=== PATIENT | female | born 1950 | race Caucasian/White ===

== ENCOUNTER 2022-02-10 21:30 | Inpatient (IN) ==
[2022-02-10] MEDS ORDERED: ONDANSETRON 4 MG/2 ML VIAL IV ONE (21:57)
[2022-02-10] MEDS ORDERED: PANTOPRAZOLE 40 MG VIAL IV ONE (21:57)
[2022-02-10] MEDS ORDERED: LACTATED RINGERS 1,000 ML IV ONE (21:57)
[2022-02-10 22:23] LABS: Basophils # (Auto) 0.04 K/mcL (0.00-0.30); Basophils % (Auto) 0.5 % (0.0-2.0); Eosinophils # (Auto) 0.06 K/mcL (0.00-0.70); Eosinophils % (Auto) 0.7 % (0.0-7.0); Hemoglobin 12.4 g/dL (11.2-15.7); Lymphocytes # (Auto) 0.77 K/mcL (1.50-4.80); Mean Cell Volume 83.1 fL (80.0-100.0); Mean Corpuscular HGB Conc 35.4 g/dL (31.0-36.0); Mean Platelet Volume 12.4 fL (7.4-10.4); Monocytes # (Auto) 0.45 K/mcL (0.10-0.90); Monocytes % (Auto) 5.3 % (1.0-12.0); Neutrophils % (Auto) 84.5 % (38.0-78.0); Platelet Count 216 K/mcL (140-440); RBC 4.21 M/mcL (3.59-5.38); Red Cell Distribution Width 11.9 % (11.5-14.5); WBC 8.5 K/mcL (4.5-11.0)
[2022-02-10 22:53] LABS: ALT/SGPT 23 U/L (<40); AST/SGOT 35 U/L (<32); Albumin 4.6 gm/dL (3.2-5.2); Albumin/Globulin Ratio 1.6 (1.0-2.3); Alkaline Phosphatase 84 U/L (39-117); Bilirubin,Total 0.8 mg/dL (0.1-1.0); Blood Urea Nitrogen 14 mg/dL (8-23); Calcium 9.4 mg/dL (8.6-10.4); Carbon Dioxide 21 mmol/L (22-30); Chloride 80 mmol/L (96-108); Globulin 2.9 gm/dL (2.2-3.7); Glomerular Filtration Rate 92; Glucose 250 mg/dL (70-105)
[2022-02-11 00:05] LABS: Beta Hydroxybutyrate 1.19 mmol/L (<0.27)
--- NOTE | 2022-02-11 00:09 | Emergency Department Note ---
HPI General Chief complaint: Chest Pain Stated complaint: CHEST PAIN Time Seen by Provider: 02/10/22 21:38 Source: patient Mode of arrival: ambulatory Limitations: no limitations History of Present Illness HPI Narrative: Narrative: 72-year-old female type I diabetic on insulin pump, history of GERD, hyperlipidemia, hypothyroid, mild hyponatremia presenting to the ED mostly for a flareup of her GERD she says. She says today after she took one of her medications "for her bones" (which sounds like it was alendronate) she developed her typical burning mid back pain and had some nonbloody nausea vomiting. She says this is exactly like her normal GERD except it was more severe which is why she came in. She she says she does not have abdominal pain nor does she have chest pain. She says this is very typical for her GERD. Also says she has been feeling a bit foggy or slightly dizzy but attributes it to her chronic vertigo. She has no focal neurologic complaint no fever no chills no genitourinary symptoms. She says she generally maintains her diabetes quite well with her insulin pump and states she is never really had DKA before. Only recent medication changes a few months ago she was started on desmopressin for frequent urination which seems to have helped she says. No other complaints. Related Data Home Medications Medication Instructions Recorded Confirmed Humalin Insulin Pump 07/11/16 03/21/21 Liothyronine Sodium 25 mcg .ROUTE 07/11/16 03/21/21 aspirin 81 mg tablet,delayed 81 mg PO DAILY 07/11/16 03/21/21 release (Lo-Dose Aspirin) pravastatin 40 mg tablet 40 mg PO HS 07/11/16 03/21/21 hydrochlorothiazide 12.5 mg capsule 12.5 mg PO DAILY 06/17/20 03/21/21 losartan 50 mg tablet 50 mg PO BID 06/17/20 03/21/21 albuterol sulfate 90 mcg/actuation 1 inh INHALATION ONCE 12/22/20 03/21/21 aerosol inhaler (Ventolin HFA) alendronate 70 mg tablet (Fosamax) 70 mg PO QWEEK 12/22/20 03/21/21 amlodipine 10 mg tablet 10 mg PO QDAY 12/22/20 03/21/21 beclomethasone dipropionate 40 1 inh INHALATION BID 12/22/20 03/21/21 mcg/actuation HFA breath activated aerosol (Qvar RediHaler) calcium carbonate 600 mg calcium 600 mg PO QDAY 12/22/20 03/21/21 (1,500 mg) tablet cholecalciferol (vitamin D3) 125 125 mcg PO QDAY 12/22/20 03/21/21 mcg (5,000 unit) capsule epinephrine 1 mg/mL injection kit 1 mg IM Q20M PRN 12/22/20 03/21/21 glucagon HCl 1 mg solution for 1 mg SUB-Q Q20M PRN 12/22/20 03/21/21 injection (Glucagon (HCl) Emergency Kit) insulin lispro 100 unit/mL 5 unit SUB-Q TID 12/22/20 03/21/21 subcutaneous solution (Humalog U-100 Insulin) meclizine 25 mg tablet 25 mg PO QDAY 12/22/20 03/21/21 omeprazole 20 mg capsule,delayed 20 mg PO QDAY 12/22/20 03/21/21 release vitamin E 200 unit capsule 400 unit PO QDAY cap 01/04/21 03/21/21 Previous Rx's Medication Instructions Recorded lorazepam 1 mg tablet (Ativan) 1 mg PO ONCE PRN #2 tab 01/09/21 Allergies Allergy/AdvReac Type Severity Reaction Status Date / Time oxycodone [Oxycodone] AdvReac Intermediate hallucinati Verified 03/21/21 09:29 ons hydrocodone AdvReac Mild Nausea Verified 03/21/21 09:29 Erythromycin Base AdvReac Unknown Gastrointestinal Verified 03/21/21 09:29 Upset Sulfa (Sulfonamide AdvReac Unknown VOMITING Verified 03/21/21 09:29 Antibiotics) [SULFA (SULFONAMIDE ANTIBIOTICS)] NUTS Allergy Unknown HIVES Uncoded 04/13/15 18:13 Review of Systems ROS ROS Narrative: Narrative: All systems ED: reviewed and negative except as stated. [facility] Narrative Patient History Narrative: Narrative: Medical/Surgical/Family History All Active Problems Acute hyponatremia (Acute) History of type 1 diabetes mellitus (Acute) Diabetic peripheral neuropathy associated with type 1 diabetes mellitus (Chronic) Low back pain (Chronic) Hyperlipidemia (Acute) Hypothyroidism (Acute) Osteoarthritis (Acute) Osteopenia (Chronic) Leg fracture, left (Chronic) History of foot surgery (Chronic ~06/2014) Diabetic Charcot's foot (Chronic) Ligament tear (Chronic) Easy bruising (Chronic) Painful joint (Chronic) Swollen joint (Chronic) Arthritis (Chronic) Increased urinary frequency (Chronic) Hiatal hernia (Chronic) Heartburn (Chronic) Heart palpitations (Chronic) Vertigo (Chronic) Diabetes type I (Chronic) Thyroid disorder (Chronic) Weight gain (Chronic) History of appendectomy (Chronic) History of shoulder surgery (Chronic) Bronchitis (Chronic) Asthma (Chronic) Closed fracture of left tibial plateau (Chronic) Osteoporosis (Chronic) Accidental drug ingestion (Chronic) Bite by animal (Chronic) Laceration (Chronic) Dog bite (Chronic) Medical History Accidental drug ingestion Arthritis Asthma Bronchitis Diabetes type I Diabetic Charcot's foot Diabetic peripheral neuropathy associated with type 1 diabetes mellitus Easy bruising Foot fracture, left Heart palpitations Heartburn Hiatal hernia Hyperlipidemia Hypothyroidism Increased urinary frequency Left femoral shaft fracture (~07/2019) Leg fracture, left Ligament tear Low back pain Osteoarthritis Osteopenia Osteoporosis Painful joint Swollen joint Thyroid disorder Vertigo Weight gain Surgical History History of appendectomy History of foot surgery (~06/2014) Left Mid foot reconstruction History of open reduction and internal fixation (ORIF) procedure left tibial plateau fracture History of shoulder surgery Right History of surgery left femur intramedullary kayode Family History Mother , 100 Arthritis Father , 72 Heart disease High blood pressure Chronic pain syndrome Sister , 40 Melanoma Family/Other Diabetes mellitus Social History Smoking Status: Never smoker Alcohol Intake Frequency: a few times a month Substance Use: does not use Exam Narrative Narrative: Narrative: Constitutional: normally developed, no acute distress . Head: Normocephalic, atraumatic, Eyes: No Icterus, ENT: Moist mucus membranes, Neck: Supple, Cardiac: Normal heart sounds, palpable peripheral pulses, no asymmetric edema Pulmonary: Normal respiratory effort. Breath sounds clear, no wheeze, rhonchi, rales, Gastrointestinal: Abdomen soft, non-distended, non-tender, negative Carpio's Musculoskeletal: No gross deformities, well perfused Skin: warm, dry Neuro: Alert and oriented. Face symmetric, PERRLA, EOMI, visual rocha intact, symmetric sensation in face, bilateral upper and lower extremities. No drift in extremities, no [id number] ataxia, symmetric motor strength in bilateral upper and lower extremities, no aphasia, no dysarthria. NIH 0 General Limitations: no limitations Course Vital Signs Vital signs: Vital Signs Pulse Rate 91 H 02/10/22 21:31 Respiratory Rate 17 02/10/22 21:31 Blood Pressure 185/68 02/10/22 21:31 Pulse Oximetry (%) 100 02/10/22 21:31 Temperature 36.3 C 02/11/22 01:30 Pulse Rate 82 02/11/22 01:00 Respiratory Rate 18 02/11/22 01:30 Blood Pressure 157/72 02/11/22 01:30 Pulse Oximetry (%) 99 02/11/22 01:30 MDM MDM Narrative Medical decision making narrative: Narrative: 72-year-old who presents for burning discomfort in her mid back after taking one of her medications and having nausea vomiting. She says it is the exact typical symptoms of her known GERD it was just more significant. No cardiorespiratory complaints no abdominal pain. Does report some nondescript mild dizziness but attributed it to the vertigo she has no focal neurologic deficits whatsoever and vitals are stable. Work-up is initiated, was initially given some lactated Ringer's for her nausea vomiting as well as symptomatic management With Zofran, Protonix Twelve-lead EKG sinus rhythm 89 ID, QRS, QTc within normal there is some baseline artifact but no acute ischemia noted. No STEMI criteria Chest x-ray per my preliminary interpretation no acute process CBC unremarkable no leukocytosis no anemia LFTs show tracely elevated AST 35 ALT normal bilirubin normal lipase normal Electrolytes in fact show a quite significant hyponatremia 118/hypochloremia 80. She has a tracely elevated anion gap 17 bicarb essentially normal 21. Glucose only 250 low suspicion for any DKA. Given hyponatremia: She has no focal neurologic deficits or seizure-like activity she is not confused. Normal renal function Troponin negative Beta hydroxy 1.1 VBG shows mild alkalosis 7.49 PCO2 of 29 lactate normal 1.3 bicarb 22. Not consistent with DKA Reevaluation patient is feeling a better. VSS. Once her sodium resulted low I did discontinue her lactated Ringer's. She received approximately 500 cc. My initial suspicion is the hyponatremia is caused by the DDAVP she recently started several months ago for frequent urination. Will hold further fluids at this point and will speak with hospitalist for admission Dr Garcia accepts admission to [facility]. In the meantime we will limit her free water intake tonight. Lab Data Result diagrams: 02/10/22 21:49 02/10/22 21:48 Labs: Lab Results 02/10/22 02/10/22 02/10/22 Range/Units 21:48 21:48 21:48 WBC (4.5-11.0) K/mcL RBC (3.59-5.38) M/mcL Hgb (11.2-15.7) g/dL Hct (34.1-44.9) % MCV (80.0-100.0) fL MCH (26.0-34.0) pg MCHC (31.0-36.0) g/dL RDW (11.5-14.5) % Plt Count (140-440) K/mcL MPV (7.4-10.4) fL Neut % (Auto) (38.0-78.0) % Lymph % (Auto) (15.5-49.0) % [place] % (Auto) (1.0-12.0) % Eos % (Auto) (0.0-7.0) % Baso % (Auto) (0.0-2.0) % Lymph # (Auto) (1.50-4.80) K/mcL [place] # (Auto) (0.10-0.90) K/mcL Eos # (Auto) (0.00-0.70) K/mcL Baso # (Auto) (0.00-0.30) K/mcL Absolute Neutrophils (1.80-8.00) K/mcL Sodium 118 L* (133-145) mmol/L Potassium 3.7 (3.3-5.1) mmol/L Chloride 80 L (96-108) mmol/L Carbon Dioxide 21 L (22-30) mmol/L Anion Gap 17.0 H (8.0-16.0) BUN 14 (8-23) mg/dL Creatinine 0.6 (0.6-1.1) mg/dL GFR Calculation 92 Glucose 250 H (70-105) mg/dL Calcium 9.4 (8.6-10.4) mg/dL Total Bilirubin 0.8 (0.1-1.0) mg/dL AST 35 H (<32) U/L ALT 23 (<40) U/L Alkaline Phosphatase 84 (39-117) U/L Troponin T < 0.01 (<0.03) ng/mL Total Protein 7.5 (5.9-8.4) gm/dL Albumin 4.6 (3.2-5.2) gm/dL Globulin 2.9 (2.2-3.7) gm/dL Albumin/Globulin Ratio 1.6 (1.0-2.3) Lipase 14 (7-60) U/L Beta-Hydroxybutyrate (<0.27) mmol/L 02/10/22 02/10/22 Range/Units 21:48 21:49 WBC 8.5 (4.5-11.0) K/mcL RBC 4.21 (3.59-5.38) M/mcL Hgb 12.4 (11.2-15.7) g/dL Hct 35.0 (34.1-44.9) % MCV 83.1 (80.0-100.0) fL MCH 29.5 (26.0-34.0) pg MCHC 35.4 (31.0-36.0) g/dL RDW 11.9 (11.5-14.5) % Plt Count 216 (140-440) K/mcL MPV 12.4 H (7.4-10.4) fL Neut % (Auto) 84.5 H (38.0-78.0) % Lymph % (Auto) 9.0 L (15.5-49.0) % [place] % (Auto) 5.3 (1.0-12.0) % Eos % (Auto) 0.7 (0.0-7.0) % Baso % (Auto) 0.5 (0.0-2.0) % Lymph # (Auto) 0.77 L (1.50-4.80) K/mcL [place] # (Auto) 0.45 (0.10-0.90) K/mcL Eos # (Auto) 0.06 (0.00-0.70) K/mcL Baso # (Auto) 0.04 (0.00-0.30) K/mcL Absolute Neutrophils 7.20 (1.80-8.00) K/mcL Sodium (133-145) mmol/L Potassium (3.3-5.1) mmol/L Chloride (96-108) mmol/L Carbon Dioxide (22-30) mmol/L Anion Gap (8.0-16.0) BUN (8-23) mg/dL Creatinine (0.6-1.1) mg/dL GFR Calculation Glucose (70-105) mg/dL Calcium (8.6-10.4) mg/dL Total Bilirubin (0.1-1.0) mg/dL AST (<32) U/L ALT (<40) U/L Alkaline Phosphatase (39-117) U/L Troponin T (<0.03) ng/mL Total Protein (5.9-8.4) gm/dL Albumin (3.2-5.2) gm/dL Globulin (2.2-3.7) gm/dL Albumin/Globulin Ratio (1.0-2.3) Lipase (7-60) U/L Beta-Hydroxybutyrate 1.19 H (<0.27) mmol/L ED POC Tests ED POC Tests: MARLON - SARS Antigen Negative Discharge Plan Patient/Caregiver Discharge Instructions Pt seen by TILE SETTER/PA only: No Clinical Impression: Acute hyponatremia, History of type 1 diabetes mellitus Patient Disposition: Xfer As Inpt ([facility]) Condition: Serious Discharge Date/Time: 02/11/22 01:05 Discharge Location: [facility] Inpatient Discharge Comment: [id number]
[2022-02-11] MEDS ORDERED: ONDANSETRON 4 MG/2 ML VIAL IV PRN ×2 (00:17→08:51)
[2022-02-11] MEDS ORDERED: ACETAMINOPHEN 325 MG TABLET PO PRN (00:17)
[2022-02-11] MEDS ORDERED: NALOXONE HCL 0.4 MG/ML VIAL IV PRN (00:17)
[2022-02-11] MEDS ORDERED: morphine 2 MG/ML VIAL IV PRN (00:17)
--- NOTE | 2022-02-11 05:23 | XRay Report ---
INDICATION: chest pain. Heartburn. TECHNIQUE: AP portable upright chest x-ray COMPARISON: Previous examination dated 01/24/2008 FINDINGS: Lungs:Lungs are negative. No focal pulmonary parenchymal infiltrate or mass Heart, vascular:No significant cardiomegaly. Pulmonary vascularity is normal. No pulmonary edema or pulmonary congestion Mediastinum, arpan:No mediastinal widening. No hilar mass Pleura:No pleural fluid. No pleural-based mass or calcification Skeletal:Negative. IMPRESSION: 1. Negative AP portable chest x-ray 2. No significant interval change Interpreted and Authenticated by: Marlo Faulkner 02/11/22
[2022-02-11] MEDS ORDERED: DEXTROSE 31 GM ORAL.SUSP PO PRN (08:30)
[2022-02-11] MEDS ORDERED: DEXTROSE 50% 50 ML VIAL IV PRN (08:30)
--- NOTE | 2022-02-11 08:33 | Internal Med History&Physical ---
HPI History of Present Illness Patient information: Note initiated : 02/11/22 at 8:20 am Service Date, if different from initiated Date: [] Patient: Tisha Fish a 72 y/o F admitted on 02/11/22 for CHEST PAIN. Chief Complaint: [] History of present illness: Ms. Fish is a 72 year old F Presented to the ED complaining of heartburn. She is on alendronate and says her symptoms typically worsen and she takes alendronate once a week. Her symptoms do become worse after taking it however they are more severe than usual and she was having a lot of nausea and dry heaving. No abdominal pain. Chest x-ray was unremarkable. Labs were remarkable for a sodium of 118. She had elevated blood glucose of 250 and mild elevation beta hydroxybutyric acid. Rectiv sodium for glucose was 120. VBG pH is 7.49. She also started taking desmopressin 6 weeks ago at night for her severe nocturia, as prescribed by her urologist. She did get some follow-up sodium labs since starting to make sure her sodium stayed appropriate in the last check was early January which showed a sodium 134. She is also on hydrochlorothiazide. Review of Systems: Pertinent positives as above. Denies headache/fever/chills/nausea/vomiting/chest or abdominal pain/cough/dy spnea/diarrhea. Remaining 10 point review of system reviewed negative PFSH PFSH All Active Problems Acute hyponatremia (Acute) History of type 1 diabetes mellitus (Acute) Diabetic peripheral neuropathy associated with type 1 diabetes mellitus (Chron ic) Low back pain (Chronic) Hyperlipidemia (Acute) Hypothyroidism (Acute) Osteoarthritis (Acute) Osteopenia (Chronic) Leg fracture, left (Chronic) History of foot surgery (Chronic ~06/2014) Diabetic Charcot's foot (Chronic) Ligament tear (Chronic) Easy bruising (Chronic) Painful joint (Chronic) Swollen joint (Chronic) Arthritis (Chronic) Increased urinary frequency (Chronic) Hiatal hernia (Chronic) Heartburn (Chronic) Heart palpitations (Chronic) Vertigo (Chronic) Diabetes type I (Chronic) Thyroid disorder (Chronic) Weight gain (Chronic) History of appendectomy (Chronic) History of shoulder surgery (Chronic) Bronchitis (Chronic) Asthma (Chronic) Closed fracture of left tibial plateau (Chronic) Osteoporosis (Chronic) Accidental drug ingestion (Chronic) Bite by animal (Chronic) Laceration (Chronic) Dog bite (Chronic) Medical History Accidental drug ingestion Arthritis Asthma Bronchitis Diabetes type I Diabetic Charcot's foot Diabetic peripheral neuropathy associated with type 1 diabetes mellitus Easy bruising Foot fracture, left Heart palpitations Heartburn Hiatal hernia Hyperlipidemia Hypothyroidism Increased urinary frequency Left femoral shaft fracture (~07/2019) Leg fracture, left Ligament tear Low back pain Osteoarthritis Osteopenia Osteoporosis Painful joint Swollen joint Thyroid disorder Vertigo Weight gain Surgical History History of appendectomy History of foot surgery (~06/2014) Left Mid foot reconstruction History of open reduction and internal fixation (ORIF) procedure left tibial plateau fracture History of shoulder surgery Right History of surgery left femur intramedullary kayode Family History Mother , 100 Arthritis Father , 72 Heart disease High blood pressure Chronic pain syndrome Sister , 40 Melanoma Family/Other Diabetes mellitus Social History (Updated 01/04/21 @ 16:24 by Miracle Miles) marital status: education level: college occupational status: retired occupation: social director alcohol intake frequency: a few times a month substance use type: does not use MEDS/ALLERGIES Home Medications and Allergies Home Medications Medication Instructions Recorded Confirmed Type Humalin Insulin Pump 1 units CONTINUOUS SUBCUTANEOUS 07/11/16 02/11/22 History INFUSION ACHS pravastatin 40 mg tablet 40 mg PO HS 07/11/16 02/11/22 History hydrochlorothiazide 12.5 mg capsule 12.5 mg PO DAILY 06/17/20 02/11/22 History losartan 50 mg tablet 50 mg PO BID 06/17/20 02/11/22 History albuterol sulfate 90 mcg/actuation 1 inh INHALATION ONCE 12/22/20 02/11/22 History aerosol inhaler (Ventolin HFA) alendronate 70 mg tablet (Fosamax) 70 mg PO QWEEK 12/22/20 02/11/22 History amlodipine 10 mg tablet 10 mg PO QDAY 12/22/20 02/11/22 History calcium carbonate 600 mg calcium 600 mg PO QDAY 12/22/20 02/11/22 History (1,500 mg) tablet cholecalciferol (vitamin D3) 125 125 mcg PO QDAY 12/22/20 02/11/22 History mcg (5,000 unit) capsule epinephrine 1 mg/mL injection kit 1 mg IM Q20M PRN 12/22/20 02/11/22 History glucagon HCl 1 mg solution for 1 mg SUB-Q Q20M PRN 12/22/20 02/11/22 History injection (Glucagon (HCl) Emergency Kit) meclizine 25 mg tablet 25 mg PO QDAY 12/22/20 02/11/22 History omeprazole 20 mg capsule,delayed 20 mg PO QDAY 12/22/20 02/11/22 History release vitamin E 200 unit capsule 400 unit PO QDAY cap 01/04/21 02/11/22 History levothyroxine 25 mcg capsule 25 mcg PO QDAY 02/11/22 02/11/22 History Allergies Allergy/AdvReac Type Severity Reaction Status Date / Time nut - unspecified Allergy Mild Hives Verified 02/11/22 06:35 oxycodone [Oxycodone] AdvReac Intermediate hallucinati Verified 03/21/21 09:29 ons Erythromycin Base AdvReac Mild Gastrointestinal Verified 02/11/22 06:35 Upset hydrocodone AdvReac Mild Nausea Verified 03/21/21 09:29 Sulfa (Sulfonamide AdvReac Mild VOMITING Verified 02/11/22 06:35 Antibiotics) [SULFA (SULFONAMIDE ANTIBIOTICS)] EXAM Constitutional Vitals: Temp Pulse Resp BP Pulse Ox 96.8 F L 79 17 136/67 97 02/11/22 06:40 02/11/22 06:40 02/11/22 06:40 02/11/22 06:40 02/11/22 06:40 Exam: General: Alert, Awake, No acute Distress Eyes/N/T: EOMI, PERRL, Head/Neck: neck supple, normocephalic atraumatic CV: RRR, No murmurs, normal s1/s2 Pulm: Clear b/l, no wheezing/rhonchi/rales Abd: soft, nontender, +BS x4 Ext: no clubbing/cyanosis/edema Neuro: Alert, no focal deficits, moves all extremities, CN 2-12 grossly intact, symmetrical strength b/l upper/lower, sensations intact b/l upper/lower Skin: warm/dry DATA Data Completed and Pending Labs: Labs from last 24 hours 02/10/22 02/10/22 02/10/22 21:49 21:48 21:48 WBC 8.5 RBC 4.21 Hgb 12.4 Hct 35.0 MCV 83.1 MCH 29.5 MCHC 35.4 RDW 11.9 Plt Count 216 MPV 12.4 H Neut % (Auto) 84.5 H Lymph % (Auto) 9.0 L [place] % (Auto) 5.3 Eos % (Auto) 0.7 Baso % (Auto) 0.5 Lymph # (Auto) 0.77 L [place] # (Auto) 0.45 Eos # (Auto) 0.06 Baso # (Auto) 0.04 Absolute Neutrophils 7.20 Sodium Potassium Chloride Carbon Dioxide Anion Gap BUN Creatinine GFR Calculation Glucose Calcium Total Bilirubin AST ALT Alkaline Phosphatase Troponin T Total Protein Albumin Globulin Albumin/Globulin Ratio Lipase 14 Beta-Hydroxybutyrate 1.19 H 02/10/22 02/10/22 21:48 21:48 WBC RBC Hgb Hct MCV MCH MCHC RDW Plt Count MPV Neut % (Auto) Lymph % (Auto) [place] % (Auto) Eos % (Auto) Baso % (Auto) Lymph # (Auto) [place] # (Auto) Eos # (Auto) Baso # (Auto) Absolute Neutrophils Sodium 118 L* Potassium 3.7 Chloride 80 L Carbon Dioxide 21 L Anion Gap 17.0 H BUN 14 Creatinine 0.6 GFR Calculation 92 Glucose 250 H Calcium 9.4 Total Bilirubin 0.8 AST 35 H ALT 23 Alkaline Phosphatase 84 Troponin T < 0.01 Total Protein 7.5 Albumin 4.6 Globulin 2.9 Albumin/Globulin Ratio 1.6 Lipase Beta-Hydroxybutyrate A/P Narrative A/P Narrative: A: *Hyponatremia, likely chronic: -2/2 DDAVP recently started, additional risk med HCTZ *Pyrosis (h/o GERD): *DMI w/neuropathy: on insulin pump -A1c *HTN: On Norvasc and hydrochlorothiazide *Asthma: *Hypothyroidism: TSH P: -Hyponatremia work-up labs -Fluid restrict -Follow-up chemistry -PPI/carafate, prn Tums/Maalox -insulin pump with SSI -cont norvasc, d/c HCTZ -d/c DDAVP -pt/ot -ppx: lovenox Time Spent With Patient Time: Total time spent is greater than 50% in coordination of care (as documented) at patient's floor/unit and/or counseling patient: Total time spent with greater than 50% in coordination of care (as documented) at patient's floor/unit and/or counseling patient:: 50 - 70 minutes QUALITY VTE Deep Vein Thrombosis/Pulmonary Embolism Present on Admission: No
[2022-02-11] MEDS ORDERED: EPINEPHRINE 1 MG/ML IM PRN (08:47)
[2022-02-11] MEDS ORDERED: GLUCAGON,HUMAN RECOMBINANT 1 MG VIAL IV PRN (08:50)
[2022-02-11] MEDS ORDERED: POTASSIUM CHLORIDE 40 MEQ in DEXTROSE 5% IN WATER 500 ML IV PRN (08:51)
[2022-02-11] MEDS ORDERED: MAG HYDROX/AL HYDROX/SIMETH 30 ML ORAL.SUSP PO PRN (08:51)
[2022-02-11] MEDS ORDERED: CALCIUM CARBONATE 500 MG TAB.CHEW CHEWED PRN (08:51)
[2022-02-11] MEDS ORDERED: POTASSIUM CHLORIDE 20 MEQ TABLET PO PRN ×2 (08:51)
[2022-02-11] MEDS ORDERED: POLYETHYLENE GLYCOL 3350 17 GM PACKET PO PRN (08:51)
[2022-02-11] MEDS ORDERED: SENNOSIDES 1 TABLET PO PRN (08:51)
[2022-02-11] MEDS ORDERED: IPRATROPIUM/ALBUTEROL 3 ML AMPUL.NEB NEB PRN (08:51)
[2022-02-11] MEDS ORDERED: MAGNESIUM SULFATE 2 GM/50 ML BAG IV PRN (08:51)
[2022-02-11] MEDS ORDERED: MECLIZINE 25 MG TABLET PO PRN (08:54)
[2022-02-11] MEDS ORDERED: HUMULIN INSULIN PUMP SC SCH (09:00)
[2022-02-11] MEDS ORDERED: GLUCAGON,HUMAN RECOMBINANT 1 MG VIAL SQ PRN (09:00)
[2022-02-11] MEDS ORDERED: BETHANECHOL 10 MG TABLET PO SCH (09:00)
[2022-02-11] MEDS: SUCRALFATE 1 GM/10 ML ORAL.SUSP PO SCH ×4 (09:13→21:00)
[2022-02-11] MEDS: OMEPRAZOLE 20 MG CAPSULE PO SCH (09:13)
[2022-02-11] MEDS: LOSARTAN 50 MG TABLET PO SCH ×2 (09:13→21:00)
[2022-02-11] MEDS: ENOXAPARIN 40 MG/0.4 ML SYRINGE SQ SCH (09:14)
[2022-02-11] MEDS: amLODIPine 10 MG TABLET PO SCH (09:14)
[2022-02-11 10:03] LABS: Beta Hydroxybutyrate 0.09 mmol/L (<0.27)
[2022-02-11] MEDS: LEVOTHYROXINE 25 MCG TABLET PO SCH (10:03)
[2022-02-11] MEDS: SIMVASTATIN 20 MG TABLET PO SCH (10:03)
[2022-02-11 10:04] LABS: ALT/SGPT 22 U/L (<40); AST/SGOT 35 U/L (<32); Albumin 4.4 gm/dL (3.2-5.2); Albumin/Globulin Ratio 1.7 (1.0-2.3); Alkaline Phosphatase 71 U/L (39-117); Bilirubin,Direct < 0.2 mg/dL (0-0.3); Bilirubin,Total 0.6 mg/dL (0.1-1.0); Blood Urea Nitrogen 13 mg/dL (8-23); Calcium 9.5 mg/dL (8.6-10.4); Carbon Dioxide 24 mmol/L (22-30); Chloride 92 mmol/L (96-108); Globulin 2.6 gm/dL (2.2-3.7); Glomerular Filtration Rate 87; Glucose 66 mg/dL (70-105); Lactate Dehydrogenase 215 U/L (135-225); Phosphorous 2.8 mg/dL (2.5-4.5); Triglycerides 56 mg/dL (<150); Uric Acid 2.9 mg/dL (2.5-8.0)
[2022-02-11] MEDS: BETHANECHOL 10 MG TABLET PO SCH ×2 (10:09→21:01)
[2022-02-11 10:10] LABS: Sodium, Urine Random 15 mmol/L
[2022-02-11 10:13] LABS: Osmolality,Urine 222 mOSM/kg (80-1000)
[2022-02-11 10:50] LABS: Thyroid Stimulating Hormone 2.28 uIU/mL (0.27-5.01)
--- NOTE | 2022-02-11 11:24 | Discharge Summary ---
Discharge Provider Provider Patient information: Note initiated : 02/11/22 at 11:22 am Service Date, if different from initiated Date: [] Patient: Tisha Fish 72 y/o F admitted on 02/11/22 for CHEST PAIN. Chief Complaint: [] Date of admission: 02/11/22 01:04 Discharge date: 02/12/22 Primary care physician: Doug Bartlett Consults: 02/10/22 Consult to Physician [CONS] Stat Comment: Consulting Provider: Idris Garcia Reason For Exam: Physician to Consult Discharge Meds Discharge Medications Home Medications Humalin Insulin Pump 1 units CONTINUOUS SUBCUTANEOUS INFUSION ACHS 07/11/16 [History Confirmed 02/11/22 Last Taken Unknown] pravastatin 40 mg tablet 40 mg PO HS 07/11/16 [History Confirmed 02/11/22 Last Taken 02/10/22 07:30] hydrochlorothiazide 12.5 mg capsule 12.5 mg PO DAILY 06/17/20 [History Confirmed 02/11/22 Last Taken 02/10/22 07:30] losartan 50 mg tablet 50 mg PO BID 06/17/20 [History Confirmed 02/11/22 Last Taken 02/10/22 07:30] albuterol sulfate 90 mcg/actuation aerosol inhaler (Ventolin HFA) 1 inh INHALATION ONCE 12/22/20 [History Confirmed 02/11/22 Last Taken Unknown] alendronate 70 mg tablet (Fosamax) 70 mg PO QWEEK 12/22/20 [History Confirmed 02/11/22 Last Taken Unknown] amlodipine 10 mg tablet 10 mg PO QDAY 12/22/20 [History Confirmed 02/11/22 Last Taken 02/10/22 07:30] calcium carbonate 600 mg calcium (1,500 mg) tablet 600 mg PO QDAY 12/22/20 [History Confirmed 02/11/22 Last Taken 02/10/22 07:30] cholecalciferol (vitamin D3) 125 mcg (5,000 unit) capsule 125 mcg PO QDAY 12/22/20 [History Confirmed 02/11/22 Last Taken 02/10/22 07:30] epinephrine 1 mg/mL injection kit 1 mg IM Q20M PRN 12/22/20 [History Confirmed 02/11/22 Last Taken Unknown] glucagon HCl 1 mg solution for injection (Glucagon (HCl) Emergency Kit) 1 mg SUB-Q Q20M PRN 12/22/20 [History Confirmed 02/11/22 Last Taken Unknown] meclizine 25 mg tablet 25 mg PO QDAY 12/22/20 [History Confirmed 02/11/22 Last Taken Unknown] omeprazole 20 mg capsule,delayed release 20 mg PO QDAY 12/22/20 [History C onfirmed 02/11/22 Last Taken 02/10/22 07:30] vitamin E 200 unit capsule 400 unit PO QDAY cap 01/04/21 [History Confirmed 02/11/22 Last Taken 02/10/22 07:30] bethanechol chloride 25 mg tablet 25 mg PO BID 02/11/22 [History Confirmed 02/11/22 Last Taken Unknown] glucose 4 gram chewable tablet 4 g PO DAILYP PRN 02/11/22 [History Confirmed 02/11/22 Last Taken Unknown] levothyroxine 25 mcg capsule 25 mcg PO QDAY 02/11/22 [History Confirmed 02/11/22 Last Taken Unknown] COURSE Hospital Course Hospital course: History of present illness: Ms. Fish is a 72 year old F Presented to the ED complaining of heartburn. She is on alendronate and says her symptoms typically worsen and she takes alendronate once a week. Her symptoms do become worse after taking it however they are more severe than usual and she was having a lot of nausea and dry heaving. No abdominal pain. Chest x-ray was unremarkable. Labs were remarkable for a sodium of 118. She had elevated blood glucose of 250 and mild elevation beta hydroxybutyric acid. Rectiv sodium for glucose was 120. VBG pH is 7.49. She also started taking desmopressin 6 weeks ago at night for her severe nocturia, as prescribed by her urologist. She did get some follow-up sodium labs since starting to make sure her sodium stayed appropriate in the last check was early January which showed a sodium 134. She is also on hydrochlorothiazide. / Patient feeling better. Sodium improved. 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 -A1c 7.0 *HTN: On Norvasc and hydrochlorothiazide *Asthma: *Hypothyroidism: TSH wnl P: -d/c DDAVP, f/u with urology -Avoid NSAIDs -cont ppi Discharge diagnosis: Hyponatremia pyrosis Secondary discharge diagnosis: Diabetes type 1 hypertension asthma hypothyroidism Time Spent with Patient Time attestation: Total time spent providing and/or coordinating discharge services: Time spent: Greater than 30 minutes EXAM Constitutional Vitals: Temp Pulse Resp BP Pulse Ox 96.8 F L 79 17 136/67 97 02/11/22 06:40 02/11/22 06:40 02/11/22 06:40 02/11/22 06:40 02/11/22 06:40 Discharge Data Data Completed and Pending Labs on day of discharge: Labs from last 24 hours 02/11/22 02/11/22 02/11/22 08:43 08:43 08:43 WBC RBC Hgb Hct MCV MCH MCHC RDW Plt Count MPV Neut % (Auto) Lymph % (Auto) Maury % (Auto) Eos % (Auto) Baso % (Auto) Lymph # (Auto) Maury # (Auto) Eos # (Auto) Baso # (Auto) Absolute Neutrophils Sodium 128 L Potassium 3.8 Chloride 92 L Carbon Dioxide 24 Anion Gap 12.0 BUN 13 Creatinine 0.7 GFR Calculation 87 Glucose 66 L Hemoglobin A1c 7.0 H Estim Average Glucose 154 Osmolality Uric Acid 2.9 Calcium 9.5 Phosphorus 2.8 Magnesium 2.0 Total Bilirubin 0.6 Direct Bilirubin < 0.2 GGT 9 AST 35 H ALT 22 Alkaline Phosphatase 71 Lactate Dehydrogenase 215 Troponin T Total Protein 7.0 Albumin 4.4 Globulin 2.6 Albumin/Globulin Ratio 1.7 Triglycerides 56 Lipase Beta-Hydroxybutyrate 0.09 TSH 2.28 Urine Osmolality Ur Random Sodium 02/11/22 02/11/22 02/10/22 08:43 08:30 21:49 WBC 8.5 RBC 4.21 Hgb 12.4 Hct 35.0 MCV 83.1 MCH 29.5 MCHC 35.4 RDW 11.9 Plt Count 216 MPV 12.4 H Neut % (Auto) 84.5 H Lymph % (Auto) 9.0 L Maury % (Auto) 5.3 Eos % (Auto) 0.7 Baso % (Auto) 0.5 Lymph # (Auto) 0.77 L Maury # (Auto) 0.45 Eos # (Auto) 0.06 Baso # (Auto) 0.04 Absolute Neutrophils 7.20 Sodium Potassium Chloride Carbon Dioxide Anion Gap BUN Creatinine GFR Calculation Glucose Hemoglobin A1c Estim Average Glucose Osmolality 268 L Uric Acid Calcium Phosphorus Magnesium Total Bilirubin Direct Bilirubin GGT AST ALT Alkaline Phosphatase Lactate Dehydrogenase Troponin T Total Protein Albumin Globulin Albumin/Globulin Ratio Triglycerides Lipase Beta-Hydroxybutyrate TSH Urine Osmolality 222 Ur Random Sodium 15 02/10/22 02/10/22 02/10/22 21:48 21:48 21:48 WBC RBC Hgb Hct MCV MCH MCHC RDW Plt Count MPV Neut % (Auto) Lymph % (Auto) Maury % (Auto) Eos % (Auto) Baso % (Auto) Lymph # (Auto) Maury # (Auto) Eos # (Auto) Baso # (Auto) Absolute Neutrophils Sodium Potassium Chloride Carbon Dioxide Anion Gap BUN Creatinine GFR Calculation Glucose Hemoglobin A1c Estim Average Glucose Osmolality Uric Acid Calcium Phosphorus Magnesium Total Bilirubin Direct Bilirubin GGT AST ALT Alkaline Phosphatase Lactate Dehydrogenase Troponin T < 0.01 Total Protein Albumin Globulin Albumin/Globulin Ratio Triglycerides Lipase 14 Beta-Hydroxybutyrate 1.19 H TSH Urine Osmolality Ur Random Sodium 02/10/22 21:48 WBC RBC Hgb Hct MCV MCH MCHC RDW Plt Count MPV Neut % (Auto) Lymph % (Auto) Maury % (Auto) Eos % (Auto) Baso % (Auto) Lymph # (Auto) Maury # (Auto) Eos # (Auto) Baso # (Auto) Absolute Neutrophils Sodium 118 L* Potassium 3.7 Chloride 80 L Carbon Dioxide 21 L Anion Gap 17.0 H BUN 14 Creatinine 0.6 GFR Calculation 92 Glucose 250 H Hemoglobin A1c Estim Average Glucose Osmolality Uric Acid Calcium 9.4 Phosphorus Magnesium Total Bilirubin 0.8 Direct Bilirubin GGT AST 35 H ALT 23 Alkaline Phosphatase 84 Lactate Dehydrogenase Troponin T Total Protein 7.5 Albumin 4.6 Globulin 2.9 Albumin/Globulin Ratio 1.6 Triglycerides Lipase Beta-Hydroxybutyrate TSH Urine Osmolality Ur Random Sodium Discharge Plan Patient/Caregiver Discharge Instructions Activity: increase activity as tolerated Diet: Regular Diet Activity Restrictions/Additional Instructions: Stop taking night-time desmopressin and follow-up with urology for alternative medication. Avoid NSAIDs for now. Prescriptions: Continued amlodipine 10 mg tablet 10 mg PO QDAY 0RF cholecalciferol (vitamin D3) 125 mcg (5,000 unit) capsule 125 mcg PO QDAY 0RF calcium carbonate 600 mg calcium (1,500 mg) tablet 600 mg PO QDAY 0RF alendronate [Fosamax] 70 mg tablet 70 mg PO QWEEK 0RF omeprazole 20 mg capsule,delayed release(DR/EC) 20 mg PO QDAY 0RF meclizine 25 mg tablet 25 mg PO QDAY 0RF Glucagon (HCl) Emergency Kit 1 mg recon soln 1 mg SUB-Q Q20M PRN (Reason: Hypoglycemia) 0RF Rx Instructions: until target blood sugar attained epinephrine 1 mg/mL kit 1 mg IM Q20M PRN (Reason: Allergic Symptoms) 0RF Rx Instructions: for 2 doses albuterol sulfate [Ventolin HFA] 90 mcg/actuation HFA aerosol inhaler 1 inh INHALATION ONCE 0RF vitamin E 200 unit capsule 400 unit PO QDAY 0RF pravastatin 40 MG tablet 40 mg PO HS 0RF Humalin Insulin Pump 1 units continuous subcutaneous infusion ACHS 0RF losartan 50 mg tablet 50 mg PO BID 0RF hydrochlorothiazide 12.5 mg capsule 12.5 mg PO DAILY 0RF levothyroxine 25 mcg Capsule 25 mcg PO QDAY 0RF bethanechol chloride 25 mg Tablet 25 mg PO BID 0RF glucose 4 gram Tablet,Chewable 4 g PO DAILYP PRN (Reason: Hypoglycemia) 0RF Rx Instructions: until symptoms of low blood sugar are controlled Follow Up Plan Follow up with: Doug Bartlett DO [Primary Care Provider] - Patient Disposition: Home, Self-Care Prognosis: Fair Overall status at discharge: patient is progressing back to baseline Discharge Orders: Discharge Order (Routine); Ordered 02/12/22 Ordered By: Idris Garcia [facility] Deep Vein Thrombosis/Pulmonary Embolism Present on Admission: No
[2022-02-11] MEDS: 0.9 % SODIUM CHLORIDE 10 ML SYRINGE IV SCH ×3 (11:30→21:41)
[2022-02-11] MEDS: INSULIN LISPRO 1 UNIT/0.01 ML UNIT SQ SCH ×3 (11:33→21:02)
[2022-02-11] MEDS ORDERED: INSULIN LISPRO 1 UNIT/0.01 ML UNIT SQ SCH (12:00)
[2022-02-11] MEDS ORDERED: GLUCOSE PO PRN ×2 (16:21→16:45)
[2022-02-11] MEDS ORDERED: BETHANECHOL 25 MG TABLET PO SCH (21:00)
[2022-02-11] MEDS: ACETAMINOPHEN 325 MG TABLET PO PRN (22:16)
[2022-02-12] MEDS: 0.9 % SODIUM CHLORIDE 10 ML SYRINGE IV SCH (05:45)
[2022-02-12 07:10] LABS: ALT/SGPT 27 U/L (<40); AST/SGOT 35 U/L (<32); Albumin 4.2 gm/dL (3.2-5.2); Albumin/Globulin Ratio 1.8 (1.0-2.3); Alkaline Phosphatase 68 U/L (39-117); Bilirubin,Direct < 0.2 mg/dL (0-0.3); Bilirubin,Total 0.4 mg/dL (0.1-1.0); Blood Urea Nitrogen 21 mg/dL (8-23); Calcium 9.1 mg/dL (8.6-10.4); Carbon Dioxide 24 mmol/L (22-30); Chloride 99 mmol/L (96-108); Globulin 2.4 gm/dL (2.2-3.7); Glomerular Filtration Rate 74; Glucose 90 mg/dL (70-105); Lactate Dehydrogenase 176 U/L (135-225); Phosphorous 3.7 mg/dL (2.5-4.5); Triglycerides 59 mg/dL (<150); Uric Acid 3.9 mg/dL (2.5-8.0)
[2022-02-12] MEDS: SUCRALFATE 1 GM/10 ML ORAL.SUSP PO SCH (07:30)
[2022-02-12] MEDS: OMEPRAZOLE 20 MG CAPSULE PO SCH (07:30)
[2022-02-12] MEDS: LEVOTHYROXINE 25 MCG TABLET PO SCH (07:30)
[2022-02-12] MEDS: ACETAMINOPHEN 325 MG TABLET PO PRN (07:31)
[2022-02-12] MEDS: INSULIN LISPRO 1 UNIT/0.01 ML UNIT SQ SCH (08:01)
[2022-02-12] MEDS: amLODIPine 10 MG TABLET PO SCH (08:05)
[2022-02-12] MEDS: SIMVASTATIN 20 MG TABLET PO SCH (08:05)
[2022-02-12] MEDS: BETHANECHOL 10 MG TABLET PO SCH (08:05)
[2022-02-12] MEDS: LOSARTAN 50 MG TABLET PO SCH (08:05)
[2022-02-12] MEDS: ENOXAPARIN 40 MG/0.4 ML SYRINGE SQ SCH (08:06)
== END 2022-02-12 09:20 | disposition home or self-care (01) | DRG 641 ==
LOC: ED 21:30 → MEDSUR 02-11 01:04
PROVIDERS: ADMIT Internal Medicine; ATTEND Internal Medicine